=== PATIENT | male | born 1980 | race Two or more races ===

== ENCOUNTER 2019-06-06 15:04 | Emergency (ER) | payer OTHER ==
[~2019-06-06] VITALS: Ht 180.3 cm; Wt 95.3 kg
== END 2019-06-06 16:53 | disposition home or self-care (01) ==
LOC: ER 15:04
DX: J03.80 Acute tonsillitis due to other specified organisms (principal)

== ENCOUNTER 2019-06-23 10:26 | Outpatient (CLI) | payer OTHER | END 2019-06-23 10:31 | disposition home or self-care (01) | LOC: SONOGRAMA 10:26 | DX: R07.0 Pain in throat (principal); E04.2 Nontoxic multinodular goiter ==

== ENCOUNTER 2019-07-18 09:38 | Outpatient (CLI) | payer OTHER | END 2019-07-18 09:41 | disposition home or self-care (01) | LOC: SONOGRAMA 09:38 | DX: E04.2 Nontoxic multinodular goiter (principal) ==

== ENCOUNTER 2019-07-19 18:30 | Emergency (ER) | payer OTHER ==
[~2019-07-19] VITALS: Ht 180.3 cm; Wt 90.7 kg
[2019-07-20] MEDS ORDERED: VOLTAREN-XR100 MG PO (00:53)
== END 2019-07-20 00:54 | disposition home or self-care (01) ==
LOC: ER 18:30
DX: K62.5 Hemorrhage of anus and rectum (principal); N50.811 Right testicular pain

== ENCOUNTER → 2019-08-30 | Outpatient (CLI) | payer OTHER ==
[~2019-08-30] MED LIST: VOLTAREN-XR100 MG PO
== END | disposition home or self-care (01) ==
LOC: RAD 10:55
DX: M25.572 Pain in left ankle and joints of left foot (principal)